=== PATIENT | female | born 1960 | race Caucasian/White ===

== ENCOUNTER 2024-04-10 15:57 | Emergency (ER) | payer OTHER ==
[~2024-04-10] VITALS: Ht 165.1 cm; Wt 66.0 kg
[2024-04-10 16:34] VITALS: O2SAT 98
[2024-04-10] MEDS ORDERED: METH-653 MT (18:43)
[2024-04-10] MEDS ORDERED: LIDO700A15 TP (18:43)
[2024-04-10] MEDS ORDERED: IBUP-2028 MT (18:43)
[2024-04-10] MEDS: METHOCARBAMOL 500MG TABLET PO ONE (18:51)
[2024-04-10] MEDS: IBUPROFEN 400MG TABLET PO ONE (18:51)
[2024-04-10 18:55] VITALS: BP 148/75; PULSE 72; RESP 18; TEMP 36.72516; O2SAT 98
== END 2024-04-10 18:55 | disposition home or self-care (01) ==
LOC: ER 15:57
DX: R51.9 Headache, unspecified (principal); M25.511 Pain in right shoulder; R07.89 Other chest pain; Z90.49 Acquired absence of other specified parts of digestive tract; Z88.5 Allergy status to narcotic agent; W18.30XA Fall on same level, unspecified, initial encounter; Y93.9 Activity, unspecified; Y92.89 Other specified places as the place of occurrence of the external cause; Y99.8 Other external cause status
CPT/HCPCS: 70486; 71101; 73030; 99284